=== PATIENT | female | born 1990 | race Caucasian/White ===

== ENCOUNTER → 2019-12-16 12:55 | Outpatient (CLI) | payer BC, SELFPAY ==
--- NOTE | ~2019-12-16 | US_ITS ---
EXAMINATION: US OB >= 14 weeks Fetus DATE: 12/16/2019 13:43 INDICATION: anatomic survey. TECHNIQUE: Real-time ultrasound of the pelvis was performed. COMPARISON: None. FINDINGS: There is a single living fetus in breech presentation. The placenta is posterior, 4.1 cm from the ce rvix. heart rate is 156 beats per minute (bpm). The amniotic fluid volume is subjectively jagdish l. The following biometric data were obtained: Biparietal diameter (BPD): 4.6 cm; head circumference (HC): 18.4 cm; abdominal circumference (AC): 15 .2 cm; femur length (FL): 3.5 cm. These measurements are discordant with low cephalic index. Estimated weight is 366 g +/- 55 g, which correlates with 94th percentile when 05/07/20 is used as estimated date of delivery. As single measurements, these parameters are each equal to the following estimated gestational ages w ith ranges of +/- 2 standard deviations: BPD: 19 weeks 6 days (18 weeks 1 days - 21 weeks 4 days). HC: 20 weeks 6 days (19 weeks 2 days - 22 weeks 2 days). AC: 20 weeks 3 days (18 weeks 3 days - 22 weeks 3 days). FL: 20 weeks 6 days (19 weeks 1 days - 22 weeks 5 days). estimated gestational age based solely on measurements from this exam is 20 weeks 4 days +/- 1 weeks 3 days. The cerebral ventricles, cerebellum, cisterna magna, nuchal fold, lip, and visualized portions of the spine are normal. The four-chamber heart view is normal. The heart is not well visualized on some of the other standard views. The diaphragm, stomach, kidneys, and bladder are normal. There are two umb ilical arteries to yield a 3-vessel cord. The cord insertion is normal. IMPRESSION: 1. Single living fetus in breech presentation. 2. Large for gestational age. Estimated weight is 366 g +/- 55 g, which correlates with 94th p ercentile when 05/07/20 is used as estimated date of delivery. 3. Low cephalic index. 4. Normal anatomic survey. Reviewed, dictated and finalized at location A. CTOR OF ENTERTAINMENT IMPRESSION: 1. Single living fetus in breech presentation. 2. Large for gestational age. Estimated weight is 366 g +/- 55 g, which correlates with 94th percentile when 05/07/20 is used as estimated date of deliv con. 3. Low cephalic index. 4. Normal anatomic survey.
== END ==
PROVIDERS: Visit Provider Obstetrics & Gynecology
DX: Z36.9 Encounter for antenatal screening, unspecified (principal)
CPT/HCPCS: 76805

== ENCOUNTER → 2020-01-13 13:08 | Outpatient (CLI) | payer BC, MEDICAID, SELFPAY ==
--- NOTE | ~2020-01-13 | US_ITS ---
EXAMINATION: US OB follow up DATE: 01/13/2020 14:02 INDICATION: Follow-up growth and survey TECHNIQUE: Real-time transabdominal obstetric ultrasound. FINDINGS: Ultrasound dated 12/16/2019 There is a single living fetus in variable presentation. The placenta is posterior without placenta previa. Placental margin is 4.4 cm to the cervix. RASHMI is normal measuring 11.1 cm. cardiac activity and movement is noted with a heart rate of 152 beats per minute. T he amniotic fluid volume is normal. The following biometric data were obtained: BPD: 63mm corresponds to gestational age 25 weeks 3 days. Head circumference: 232mm corresponds to gestational age 25 weeks 2 days. Abdominal circumference: 204mm corresponds to gestational age 25 weeks 0 days. Femur length: 44mm corresponds to gestational age 24 weeks 2 days. Estimated weight: 732grams +/- 110grams.] Four-chamber heart with normal left ventricular and right ventricular outflow tracts is seen. IMPRESSION: 1. Single living intrauterine in variable presentation presentation with an estimated gest ational age of 24 weeks 4 days by inititial ultrasound. Appropriate interval growth. 2. Normal placenta. 3: Normal limited survey. Reviewed, dictated and finalized at location B. UCT DEVELOPMENT ECOLOGIST IMPRESSION: 1. Single living intrauterine in variable presentation presentation with an estimated gestational age of 24 weeks 4 days by inititial ultrasound. Appropriate interval growth. 2. Normal placenta. 3: Normal limited survey.
== END ==
PROVIDERS: Visit Provider Obstetrics & Gynecology
DX: Z36.89 Encounter for other specified antenatal screening (principal); Z68.37 Body mass index [BMI] 37.0-37.9, adult; Z3A.24 24 weeks gestation of pregnancy
CPT/HCPCS: 76816

== ENCOUNTER 2022-04-23 17:52 | Emergency (ER) | payer OTHER, MEDICAID, SELFPAY ==
[2022-04-23] VITALS (11 sets, daily range): BP systolic 123–150; BP diastolic 66–83; PULSE 120–145; RESP 14–32; TEMP 36.3–37.4; O2SAT 98–100
--- NOTE | 2022-04-23 18:17 | ECG_ITS ---
Measurements Intervals [place] Rate: 133 P: 43 IA: 154 QRS: 50 QRSD: 79 T: 3 QT: 282 QTc: 421 Interpretive Statements SINUS TACHYCARDIA NONSPECIFIC T-WAVE ABNORMALITY ABNORMAL ECG NO PREVIOUS ECG AVAILABLE FOR COMPARISON Electronically Signed On 04-24-2022 9:58:45 CDT by Ash Pa M.D.
--- NOTE | 2022-04-23 18:32 | ED.ARRPALP ---
HPI - Arrhythmia/Palpitations General Chief Complaint: Arrhythmia/Palpitations Stated Complaint: palpitations Time Seen by Provider: 04/23/22 18:16 History of Present Illness HPI narrative: Pt sent here because her HR is in the 120's and 130's. Pt has no symptoms due to this. Pt has a sore throat and has been tested for covid, strep and flu which are all negative. Pt denies fever and has been eating and drinking fine. Related Data Allergies Allergy/AdvReac Type Severity Reaction Status Date / Time No Known Allergies Allergy Verified 04/23/22 18:45 Review of Systems Review of Systems: All systems reviewed & are unremarkable except as noted in HPI and below Exam Const: General: cooperative, healthy appearing, comfortable and no acute distress HENMT: Mouth: Yes Normal oral and palatal mucosa present and Yes oropharynx normal Neck: Neck: normal visual inspection Chest: Chest palpation & inspection: normal inspection of the chest Resp: Effort & Inspection: normal respiratory effort Auscultation: clear to auscultation bilaterally Cardio: Jugular venous distension: no JVD Rate: tachycardic Rhythm: regular rhythm GI: Inspection: normal to inspection GI Palp: Yes Soft to palpation Skin: General skin exam: normal color and no rashes or lesions noted Neuro: General: patient oriented x3, moves all extremities and no focal motor deficits Extrem: General: normal to inspection, full ROM and capillary refill normal Psych: Appearance: grossly normal Mental Status: mental status grossly normal Speech and movement: Normal speech and movement present Affect: normal affect Attitude: cooperative Thought process: Normal thought process present Thought content: Yes Normal thought content present Insight: Good insight present (Psych) Judgement: Good judgement present (Psych) Course Vital Signs Vital signs: Vital Signs Temperature 97.3 F L 04/23/22 17:55 Pulse Rate 141 H 04/23/22 17:55 Respiratory Rate 20 04/23/22 17:55 Blood Pressure 150/72 H 04/23/22 17:55 Pulse Oximetry 99 04/23/22 17:55 Temperature 97.3 F L 04/23/22 17:55 Pulse Rate 127 H 04/23/22 19:01 Respiratory Rate 16 04/23/22 19:01 Blood Pressure 123/81 04/23/22 19:01 Pulse Oximetry 100 04/23/22 19:01 MDM - Arrhythmia/Palpitations Lab Data Result diagrams: 04/23/22 18:42 04/23/22 18:42 Labs: Lab Results 04/23/22 04/23/22 Range/Units 18:42 18:42 WBC 12.7 H (4.5-10.0) K/mm3 RBC 3.68 L (4.2-5.4) M/mm3 Hgb 12.1 (12.0-15.0) g/dL Hct 34.9 L (37.0-47.0) % MCV 94.8 (80-100) fl MCH 32.9 (26-34) pg MCHC 34.7 (32-36) g/dl RDW 13.7 (11.5-14.5) % Plt Count 297 (150-375) k/mm3 MPV 9.6 (7.4-10.4) fl Immature Gran % (Auto) 1.2 H (0-0.5) % Neut % (Auto) 82.1 H (45.5-73.1) % Lymph % (Auto) 9.1 L (18.3-44.2) % [place] % (Auto) 7.1 (2.6-8.5) % Eos % (Auto) 0.3 (0-4.4) % Baso % (Auto) 0.2 (0.2-1.2) % Lymph # (Auto) 1.15 (0.9-3.2) K/mm3 [place] # (Auto) 0.9 H (0.1-0.6) K/mm3 Eos # (Auto) 0.0 (0-0.3) K/mm3 Baso # (Auto) 0.0 (0.0-0.1) K/mm3 Abs Immat Gran (auto) 0.15 H (0.00-0.031) K/mm3 Absolute Neuts (auto) 10.4 H (1.3-6.7) K/mm3 Absolute Nucleated RBC 0.0 (0.0-0.012) K/mm3 Nucleated RBC % 0.0 (0.0-0.2) % Sodium 136 L (137-145) mmol/L Potassium 3.9 (3.4-5.0) mmol/L Chloride 108 H (98-107) mmol/L Carbon Dioxide 18 L (22-30) mmol/L Anion Gap 10 (8-16) mmol/L BUN 7 (7-17) mg/dL Creatinine 0.50 L (0.7-1.0) mg/dL Estim Creat Clear Calc Not Reportable Estimated GFR > 60 (59 - ) Glucose 110 (65-110) mg/dL Calcium 9.1 (8.4-10.2) mg/dL Total Bilirubin 0.8 (0.2-1.3) mg/dL AST 27 (14-36) U/L ALT 25 (6-35) U/L Alkaline Phosphatase 102 (38-126) U/L Total Protein 7.0 (6.3-8.2) g/dL Albumin 4.1 (3.5-5.1) g/dL ECG Data EKG #1: Attestation: I
[2022-04-23] MEDS: SODIUM CHLORIDE 0.9% IV 1,000 ML 999 ML IV CONT (18:49)
[2022-04-23 18:50] LABS: Basophils Percent Auto 0.2 % (0.2-1.2); Eosinophils Percent Auto 0.3 % (0-4.4); Hematocrit 34.9 % (37.0-47.0); Hemoglobin 12.1 g/dL (12.0-15.0); Immature Granulocyte Absolute 0.15 K/mm3 (0.00-0.031); Immature Granulocyte Percent A 1.2 % (0-0.5); Lymphocytes Absolute Auto 1.15 K/mm3 (0.9-3.2); Lymphocytes Percent Auto 9.1 % (18.3-44.2); Mean Corpuscular HGB Conc 34.7 g/dl (32-36); Mean Corpuscular Hemoglobin 32.9 pg (26-34); Mean Corpuscular Volume 94.8 fl (80-100); Mean Platelet Volume 9.6 fl (7.4-10.4); Monocytes Absolute Auto 0.9 K/mm3 (0.1-0.6); Monocytes Percent Auto 7.1 % (2.6-8.5); Neutrophils Absolute Auto 10.4 K/mm3 (1.3-6.7); Neutrophils Percent Auto 82.1 % (45.5-73.1); Platelet Count Result 297 k/mm3 (150-375); Red Blood Count 3.68 M/mm3 (4.2-5.4); Red Cell Distribution Width 13.7 % (11.5-14.5); White Blood Count 12.7 K/mm3 (4.5-10.0)
[2022-04-23 19:05] LABS: Alanine Aminotransferase 25 U/L (6-35); Albumin Level 4.1 g/dL (3.5-5.1); Alkaline Phosphatase 102 U/L (38-126); Anion Gap 10 mmol/L (8-16); Aspartate Amino Transferase 27 U/L (14-36); Bilirubin,Total 0.8 mg/dL (0.2-1.3); Blood Urea Nitrogen 7 mg/dL (7-17); Calcium 9.1 mg/dL (8.4-10.2); Carbon Dioxide 18 mmol/L (22-30); Chloride 108 mmol/L (98-107); Estimated Glomerular Filt Rate > 60; Glucose 110 mg/dL (65-110); Potassium 3.9 mmol/L (3.4-5.0); Sodium 136 mmol/L (137-145)
--- NOTE | 2022-04-23 19:18 | PC.NURSE ---
Patient report given to BRYNN Garza. All questions answered and care of patient transferred.
== END 2022-04-23 20:47 | disposition home or self-care (01) ==
PROVIDERS: Emergency Provider Emergency Medicine; PCP Family Medicine
DX: J06.9 Acute upper respiratory infection, unspecified (principal); R00.0 Tachycardia, unspecified; R94.31 Abnormal electrocardiogram [ECG] [EKG]
CPT/HCPCS: 36415; 80053; 85025; 93005; 96360; 96361; 99284; J7030

== ENCOUNTER 2022-07-23 15:54 | Outpatient (RCR) | payer OTHER, MEDICAID, SELFPAY ==
[2022-06-26 15:28] VITALS: BP 120/75; PULSE 85
[2022-07-02 16:57] VITALS: BP 122/79; PULSE 90
[2022-07-09 16:58] VITALS: BP 113/76; PULSE 92
[2022-07-16 16:52] VITALS: BP 116/73; PULSE 84
[2022-07-23 16:31] VITALS: BP 120/78; PULSE 89
== END 2022-08-07 10:16 | disposition home or self-care (01) ==
LOC: ANHOBOP 15:54
PROVIDERS: PCP Family Medicine; Visit Provider Obstetrics & Gynecology
DX: O16.3 Unspecified maternal hypertension, third trimester (principal); Z3A.33 33 weeks gestation of pregnancy; Z3A.34 34 weeks gestation of pregnancy; Z3A.37 37 weeks gestation of pregnancy
CPT/HCPCS: 59025

== ENCOUNTER 2022-07-29 21:28 | Inpatient (IN) | payer OTHER, MEDICAID, SELFPAY ==
[2022-07-29 22:20] VITALS: BMI 40.4
--- NOTE | 2022-07-29 22:21 | LDADM ---
This patient, Melba Márquez, was admitted to Labor/Delivery/Recovery 108 on 07/29/22 at 21:28. Plans for labor, pain management and were discussed with patient. Patient/family oriented to hospital policies and general routines including ID bracelet, bed and alarms, visiting hours, pain management, procedures, bathroom and other care routines, personal items, smoking policy, room service/diet and guest tray routines, infant security routines, and visiting hours. Patient/Family are encouraged to report perceived risks to care and to ask questions if they do not understand what they are told or what they should do. See OBIX for further documentation.
[2022-07-29 23:59] LABS: Basophils Percent Auto 0.3 % (0.2-1.2); Eosinophils Absolute Auto 0.1 K/mm3 (0-0.3); Eosinophils Percent Auto 0.5 % (0-4.4); Hematocrit 32.2 % (37.0-47.0); Hemoglobin 10.7 g/dL (12.0-15.0); Immature Granulocyte Absolute 0.03 K/mm3 (0.00-0.031); Immature Granulocyte Percent A 0.3 % (0-0.5); Lymphocytes Absolute Auto 2.45 K/mm3 (0.9-3.2); Lymphocytes Percent Auto 25.8 % (18.3-44.2); Mean Corpuscular HGB Conc 33.2 g/dl (32-36); Mean Corpuscular Volume 90.2 fl (80-100); Mean Platelet Volume 10.1 fl (7.4-10.4); Monocytes Absolute Auto 0.6 K/mm3 (0.1-0.6); Monocytes Percent Auto 6.4 % (2.6-8.5); Neutrophils Absolute Auto 6.3 K/mm3 (1.3-6.7); Neutrophils Percent Auto 66.7 % (45.5-73.1); Platelet Count Result 372 k/mm3 (150-375); Red Blood Count 3.57 M/mm3 (4.2-5.4); Red Cell Distribution Width 13.7 % (11.5-14.5); White Blood Count 9.5 K/mm3 (4.5-10.0)
[2022-07-30] VITALS (88 sets, daily range): BP systolic 106–171; BP diastolic 51–136; PULSE 74–120; RESP 18; TEMP 36.2–36.7; O2SAT 99–100
[2022-07-30] MEDS: DINOPROSTONE 10 MG VAG INSERT VAGINAL (00:02)
[2022-07-30 00:15] LABS: Alanine Aminotransferase 54 U/L (6-35); Albumin Level 3.7 g/dL (3.5-5.1); Alkaline Phosphatase 221 U/L (38-126); Anion Gap 12 mmol/L (8-16); Aspartate Amino Transferase 43 U/L (14-36); Bilirubin,Total 0.7 mg/dL (0.2-1.3); Blood Urea Nitrogen 9 mg/dL (7-17); Calcium 8.9 mg/dL (8.4-10.2); Carbon Dioxide 19 mmol/L (22-30); Chloride 106 mmol/L (98-107); Estimated CRCL calculation 172 ml/min; Estimated Glomerular Filt Rate > 60; Glucose 104 mg/dL (65-110); Potassium 3.7 mmol/L (3.4-5.0); Sodium 137 mmol/L (137-145)
--- NOTE | 2022-07-30 05:13 | WPDANESEPP ---
Anes - Eval Pre Procedure Procedure: labor epidural Date/Time: 07/30/22 05:13 Pre Op Diagnosis: Induction of labor Patient Data Age: 32 Gender: F Height: 1.68 m Weight: 113.5 kg Last Vital Signs Pulse 95 07/30/22 02:00 BP 133/66 07/30/22 02:00 O2 Del Method Room Air 07/30/22 00:04 Allergies Allergy/AdvReac Type Severity Reaction Status Date / Time No Known Allergies Allergy Verified 04/23/22 18:45 Home Medications Medication Instructions Recorded Confirmed Type aspirin 81 mg chewable tablet 81 mg PO DAILY 06/26/22 07/29/22 History famotidine 10 mg tablet 10 mg PO DAILY 06/26/22 07/29/22 History labetalol 300 mg tablet 150 mg PO BID 06/26/22 07/29/22 History vit no.95-ferrous 1 tablet PO DAILY 06/26/22 07/29/22 History fumarate 28 mg-folic acid 800 mcg tablet () sertraline 25 mg tablet (Zoloft) 50 mg PO DAILY 06/26/22 07/29/22 History Laboratory Tests 07/29/22 07/29/22 07/29/22 23:38 23:38 23:38 WBC 9.5 K/mm3 K/mm3 (4.5-10.0) RBC 3.57 M/mm3 L M/mm3 (4.2-5.4) Hgb 10.7 g/dL L g/dL (12.0-15.0) Hct 32.2 % L % (37.0-47.0) MCV 90.2 fl fl (80-100) MCH 30.0 pg pg (26-34) MCHC 33.2 g/dl g/dl (32-36) RDW 13.7 % % (11.5-14.5) Plt Count 372 k/mm3 k/mm3 (150-375) MPV 10.1 fl fl (7.4-10.4) Immature Gran % (Auto) 0.3 % % (0-0.5) Neut % (Auto) 66.7 % % (45.5-73.1) Lymph % (Auto) 25.8 % % (18.3-44.2) [place] % (Auto) 6.4 % % (2.6-8.5) Eos % (Auto) 0.5 % % (0-4.4) Baso % (Auto) 0.3 % % (0.2-1.2) Lymph # (Auto) 2.45 K/mm3 K/mm3 (0.9-3.2) [place] # (Auto) 0.6 K/mm3 K/mm3 (0.1-0.6) Eos # (Auto) 0.1 K/mm3 K/mm3 (0-0.3) Baso # (Auto) 0.0 K/mm3 K/mm3 (0.0-0.1) Abs Immat Gran (auto) 0.03 K/mm3 K/mm3 (0.00-0.031) Absolute Neuts (auto) 6.3 K/mm3 K/mm3 (1.3-6.7) Absolute Nucleated RBC 0.0 K/mm3 K/mm3 (0.0-0.012) Nucleated RBC % 0.0 % % (0.0-0.2) Sodium Potassium Chloride Carbon Dioxide Anion Gap BUN Creatinine Estim Creat Clear Calc Estimated GFR Glucose Uric Acid Pending Calcium Total Bilirubin AST ALT Alkaline Phosphatase Total Protein Albumin RPR Pending Blood Type Antibody Screen 07/29/22 07/29/22 23:38 23:38 WBC RBC Hgb Hct MCV MCH MCHC RDW Plt Count MPV Immature Gran % (Auto) Neut % (Auto) Lymph % (Auto) [place] % (Auto) Eos % (Auto) Baso % (Auto) Lymph # (Auto) [place] # (Auto) Eos # (Auto) Baso # (Auto) Abs Immat Gran (auto) Absolute Neuts (auto) Absolute Nucleated RBC Nucleated RBC % Sodium 137 mmol/L mmol/L (137-145) Potassium 3.7 mmol/L mmol/L (3.4-5.0) Chloride 106 mmol/L mmol/L (98-107) Carbon Dioxide 19 mmol/L L mmol/L (22-30) Anion Gap 12 mmol/L mmol/L (8-16) BUN 9 mg/dL mg/dL (7-17) Creatinine 0.50 mg/dL L mg/dL (0.7-1.0) Estim Creat Clear Calc 172 ml/min ml/min Estimated GFR > 60 (59 - ) Glucose 104 mg/dL mg/dL (65-110) Uric Acid Calcium 8.9 mg/dL mg/dL (8.4-10.2) Total Bilirubin 0.7 mg/dL mg/dL (0.2-1.3) AST 43 U/L H U/L (14-36) ALT 54 U/L H U/L (6-35) Alkaline Phosphatase 221 U/L H U/L (38-126) Total Protein 7.0 g/dL g/dL (6.3-8.2) Albumin 3.7 g/dL g/dL (3.5
[2022-07-30 05:28] LABS: Uric Acid 5.1 mg/dL (2.5-7.5)
--- NOTE | 2022-07-30 08:40 | WPDOBADMIT ---
Obstetrics - Admit Note Admission Note: record reviewed. Additions to the history and/or subsequent changes in the physical findings follow. 32 y/o at 38 2/7 weeks with chronic hypertension, worsening blood pressure control. She takes labetalol 150 mg po bid. No headaches or epigastric pain. Good movement. GBS neg. Had Cervidil overnight, is starting to feel some contractions. AVSS ABD soft, nontender, gravid, vertex EXT nontender Cervix 2-3/80/-2. AROM with clear fluid. Vertex. NST reactive TOCO: contractions irregularly A: IUP at term with chronic HTN. P: Offered induction of labor. Reviewed risks, benefits, alternatives. Cervidil was removed and oxytocin will be administered. Anticipate .
[2022-07-30] MEDS: LACTATED RINGERS 1,000 ML 125 ML IV CONT ×2 (09:30→10:46)
[2022-07-30] MEDS: SERTRALINE HCL 50 MG TABLET PO (09:31)
[2022-07-30] MEDS: LABETALOL HCL 50 MG TABLET 150 MG PO ×2 (09:52→21:11)
[2022-07-30 10:39] LABS: Rapid Plasma Reagin Non-Reactive (NonReactive)
[2022-07-30] MEDS: OXYTOCIN 30 UNITS/NS 500 ML 30 UNITS/500 ML BAG IV CONT (10:48)
[2022-07-30 12:21] LABS: Hepatitis B Surface Antigen Negative (Negative)
[2022-07-30 12:23] LABS: Rubella IgG Antibody 1.4 IU/ML
--- NOTE | 2022-07-30 13:55 | PM.OBPRVD ---
OB - Delivery Note Procedure Delivery date: 07/30/22 Procedure: Induction of labor with Events: Chronic Hypertension Induction method: Per Pitocin Protocol Delivery augmentation: Rupture of Membranes and Pitocin Delivery monitor: External FHT and External Uterine Route of delivery: Laceration Description: None Specimen: Yes (cord blood, placenta) Quantitative Blood Loss (ml): 220 Anesthesia type: Epidural Disposition: PACU Complications: None Narrative: 32 y/o at 38 2/7 weeks gestation who presented to the hospital for induction of labor. Cervidil was placed overnight, then withdrawn the next morning. Oxytocin was administered intravenously. Amniotomy was performed with return of clear fluid. She received an epidural for pain control. Her labor progressed and her cervix dilated completely. She pushed with good effort and delivered the infant's head to the perineum. A nuchal cord was splinted and the body delivered. The cord was reduced, and the nose and mouth were bulb suctioned. After a delay, the cord was clamped and cut. The infant was handed off the field. Cord blood was collected. The placenta delivered spontaneously and was grossly normal in appearance. The usual 3 vessel cord was noted. The perineum was intact. Sponge, needle and instrument counts were correct. The patient was taken to recovery room in stable condition. The infant went to the nursery in stable condition. I was present and scrubbed for the entire delivery. [place] Baby Date of : 07/30/22 Time of : 13:44 Weeks of gestation at delivery: 38 gender: Female Weight (pounds): 7 Weight (ounces): 7 presentation: vertex position: Left Occiput Anterior Placenta delivery description: Spontaneous and Normal Configuration Cord Vessel Description: 3 Vessels, Nuchal Cord and Delayed Cord Clamping score one minute: 9 score five minutes: 9
--- NOTE | 2022-07-30 13:55 | PM.OBDSVD ---
DS: Admitting Diagnosis Discharge Date 08/01/22 Admitting Diagnosis IUP at 38 weeks Chronic HTN DS: Discharge Diagnosis Discharge Diagnosis (1) (normal spontaneous vaginal delivery): Code(s): O80 - Encounter for full-term uncomplicated delivery Status: Acute (2) Chronic hypertension affecting : Code(s): O10.919 - Unspecified pre-existing hypertension complicating , unspecified trimester Status: Acute OB - DS: Summary OB Procedures : PIH Mgmt OB Procedures Intrapartum: Spontaneous Vag Delivery OB Procedures: : None Time Spent with Patient Time attestation: Total time spent providing and/or coordinating discharge services: DS: Data Data Completed and Pending Labs on day of discharge: Labs from last 24 hours 07/30/22 07/30/22 07/29/22 11:13 11:13 23:38 WBC RBC Hgb Hct MCV MCH MCHC RDW Plt Count MPV Immature Gran % (Auto) Neut % (Auto) Lymph % (Auto) [place] % (Auto) Eos % (Auto) Baso % (Auto) Lymph # (Auto) [place] # (Auto) Eos # (Auto) Baso # (Auto) Abs Immat Gran (auto) Absolute Neuts (auto) Absolute Nucleated RBC Nucleated RBC % Sodium 137 Potassium 3.7 Chloride 106 Carbon Dioxide 19 L Anion Gap 12 BUN 9 Creatinine 0.50 L Estim Creat Clear Calc 172 Estimated GFR > 60 Glucose 104 Uric Acid Calcium 8.9 Total Bilirubin 0.7 AST 43 H ALT 54 H Alkaline Phosphatase 221 H Total Protein 7.0 Albumin 3.7 RPR Hep Bs Antigen Negative Rubella IgG Antibody 1.4 L Blood Type Antibody Screen 07/29/22 07/29/22 07/29/22 23:38 23:38 23:38 WBC 9.5 RBC 3.57 L Hgb 10.7 L Hct 32.2 L MCV 90.2 MCH 30.0 MCHC 33.2 RDW 13.7 Plt Count 372 MPV 10.1 Immature Gran % (Auto) 0.3 Neut % (Auto) 66.7 Lymph % (Auto) 25.8 [place] % (Auto) 6.4 Eos % (Auto) 0.5 Baso % (Auto) 0.3 Lymph # (Auto) 2.45 [place] # (Auto) 0.6 Eos # (Auto) 0.1 Baso # (Auto) 0.0 Abs Immat Gran (auto) 0.03 Absolute Neuts (auto) 6.3 Absolute Nucleated RBC 0.0 Nucleated RBC % 0.0 Sodium Potassium Chloride Carbon Dioxide Anion Gap BUN Creatinine Estim Creat Clear Calc Estimated GFR Glucose Uric Acid Calcium Total Bilirubin AST ALT Alkaline Phosphatase Total Protein Albumin RPR Non-reactive Hep Bs Antigen Rubella IgG Antibody Blood Type O Positive Antibody Screen Negative 07/29/22 23:38 WBC RBC Hgb Hct MCV MCH MCHC RDW Plt Count MPV Immature Gran % (Auto) Neut % (Auto) Lymph % (Auto) [place] % (Auto) Eos % (Auto) Baso % (Auto) Lymph # (Auto) [place] # (Auto) Eos # (Auto) Baso # (Auto) Abs Immat Gran (auto) Absolute Neuts (auto) Absolute Nucleated RBC Nucleated RBC % Sodium Potassium Chloride Carbon Dioxide Anion Gap BUN Creatinine Estim Creat Clear Calc Estimated GFR Glucose Uric Acid 5.1 Calcium Total Bilirubin AST ALT Alkaline Phosphatase Total Protein Albumin RPR Hep Bs Antigen Rubella IgG Antibody Blood Type Antibody Screen Discharge Plan Discharge Attending physician on discharge: Fabien Heart Discharging Clinician: Fabien Heart Patient Disposition: Home, Self-Care Activity: pelvic rest Diet: regular Discharge Instructions: Call or return if temperature above 100.4? F, increased abdominal pain, increased vaginal bleeding or any new problems. Stand Alone Forms: General Discharge Information Follow-up/Referrals: Fabien Heart MD [Physician] - 6 Weeks Discharge Medications: New ibuprofen 600 mg tablet 600 mg PO Q6H PRN (Reason: cramps) Qty: 30 0RF sertraline 100 mg tablet 100 mg PO DAILY Qty: 30 2RF Continued famotidine 10 mg Tablet 10 mg PO DAILY
[2022-07-30] MEDS: OXYTOCIN 30 UNITS/NS 500 ML 30 UNITS/500 ML BAG 125 UNITS IV CONT (14:21)
[2022-07-30] MEDS: BENZOCAINE 20% AER SPR (*SP) 56 GM CAN 1 SPRAY TOPICAL (16:06)
[2022-07-30] MEDS: WITCH HAZEL 40 PADS 1 PAD TOPICAL (16:06)
[2022-07-30] MEDS: IBUPROFEN 600 MG TABLET PO (16:06)
--- NOTE | 2022-07-30 17:00 | PC.NURSE ---
Patient transferred to post room #282 via 1700. Support person present. Oriented to unit, room, information board, rooming in, admission packet and security measures. Patient verbalizes understanding.
[2022-07-31] VITALS (7 sets, daily range): BP systolic 124–143; BP diastolic 67–81; PULSE 74–90; RESP 18; TEMP 35.9–36.9; O2SAT 97–100
[2022-07-31] MEDS: IBUPROFEN 600 MG TABLET PO ×2 (02:48→18:00)
[2022-07-31] MEDS: ACETAMINOPHEN 325 MG TABLET 650 MG PO ×2 (02:49→08:47)
[2022-07-31 05:10] LABS: Hematocrit 31.4 % (37.0-47.0); Hemoglobin 10.4 g/dL (12.0-15.0)
[2022-07-31] MEDS: LABETALOL HCL 50 MG TABLET 150 MG PO ×2 (08:42→20:36)
[2022-07-31] MEDS: SERTRALINE HCL 50 MG TABLET PO (08:42)
[2022-07-31] MEDS: FAMOTIDINE 10 MG TABLET PO (08:42)
[2022-07-31] MEDS: MULTIVIT/MIN/PREN/FOL AC/IRON TABLET 1 TAB PO (08:42)
--- NOTE | 2022-07-31 09:00 | PM.OBPNVD ---
OB - PN: Subj Subjective Date/time seen: 07/31/22 14:32 Narrative: Pain OK. OB - PN: Obj Data Labs CBC & Chem 7: 07/31/22 03:56 07/29/22 23:38 Labs: Laboratory Results - last 24 hr 07/31/22 03:56 Hgb 10.4 L Hct 31.4 L OB - PN A/P Plan Comments: A: PPD#1, doing well. CHTN. Histroy of depression. P: Continue labetalol and sertraline at the current doses. Routine care. Exam Psych: Other: AVSS ABD soft, nontender, fundus firm EXT nontender
--- NOTE | 2022-07-31 09:07 | WPDANLDPN2 ---
Anes-Prog Note L&D Date/Time: 07/31/22 09:07 Comfortable throughout: labor and delivery Neuraxial method: epidural Epidural/Spinal procedure site: clean & non-tender Neuro status: Neuro function grossly intact. Cardiovascular status: normal Respiratory status: normal Airway patency: baseline Mental status: baseline Post-Op hydration status: normal Vital Signs: Last Vital Signs Temp 97.7 F 07/31/22 04:00 Pulse 88 07/31/22 08:42 Resp 18 07/31/22 04:00 BP 128/78 07/31/22 04:00 Pulse Ox 99 07/30/22 17:00 O2 Del Method Room Air 07/31/22 00:00 Pain score (VAS): 0 I/O: Intake & Output 07/30/22 07/31/22 07/31/22 23:59 07:59 15:59 Intake Total 240 Output Total 70 Balance 170 Post-procedural complaints: none Patient feedback: Patient satisfied with anesthetic care.
--- NOTE | 2022-07-31 11:56 | PCCCNOTE ---
Care Coordination Note. Pt. referred to CC for scoring high risk on [place] suicide risk scale. I met with pt. and spouse/FOB at bedside. Pt. reports feeling in a good place right now regarding her mental health and relationships. Pt. denies any current suicidal ideation or plan. She also reports no suicidal thoughts for a few weeks. She states that she has dealt with suicidal thoughts her whole life. She has never had a history of suicide attempt. She states she has been doing well the past few years. She hasn't been on any anti-depressant medications since her last . She decided to go on zoloft toward the end of this due to thoughts and anticipation of any post depression. Pt. reports having much family support from spouse, her family, and his family that she has felt comfortable talking with whenever she feels depressed or has suicidal thoughts. Pt. has appointment setup with a counseling agency on Sep 02, but considering changing it back to [facility] due to insurance issues. I provided contact information and encouraged her to either go to Aug appointment or work on changing, so she had good counseling follow-up. Pt. will likely setup with [facility] again due to better coverage. We discussed post- depression and encouraged pt. to monitor her symptoms and speak with her doctor or family if she felt depressed and especially if she felt suicidal. Pt. appears to have good insight into herself reporting she knows it's self doubt and low self esteem that she needs to work on. supportive and reports knowing her history and helping her as needed. Provided pt. with counseling and crisis hotline information in case she would ever feel hopeless. Pt. reports being setup with [facility] and has all necessary baby care items. Pt. and deny further needs.
--- NOTE | 2022-07-31 15:58 | PC.NURSE ---
1001 - Introductions were made, then consulted with patient to assess needs related to . Mother led the conversation with her?plans to feed?her and the?experience so far. Resources provided for inpatient and outpatient services using a resource guide and mom/baby guide. Mother voiced understanding of information and will call for assistance when infant is returned to her room. [phone] - Consulted with patient to assess needs related to . Mother led an extensive conversation with a flat affect with her history of her other 2 children, her other children having jaundice, the experience with feeding baby so far, and her concerns regarding her large nipples and how that compares to her infants small mouth. Mother works well with her infant with encouragement, however, remains concerned after reassurance. Reviewed working with infant, breast, nipples and how to protect the nipples with an optimal deep latch, good positioning, and good hand washing. Encouraged understanding the benefits of skin to skin, responding to feeding cues, frequencies of feeding 8-12 times in 24 hours (approximately 2-3 hours), hand expression, milk production, intake/output feeding sheet and signs of adequate intake encouraging swallowing at the breast. When hand expression was mentioned mother shared that she has been latching her infant and after the attempts to breastfeed she will hand express colostrum, then syringe feed that to her infant. Reviewed positioning and alignment, supporting breast, off-centered (asymmetrical latch) and leading with the chin with big open wide gape. Infant latched optimally to the breast in cross cradle position. Infant sucked for a few sucks, then stops and goes to sleep. Nipple care reviewed with optimal latch and good positioning which mother is skilled with technique. Infant has a mouthful of nipple and has difficulty latching effectively to remove milk to swallow at the breast and stay actively . Infant demonstrates good output and is visually content with hands relaxed. We discussed mother's feeding choices, desires, and encouraged attempting to latch infant, then hand expressing colostrum using a syringe feeding method if she doesn't see swallowing. Resources used to facilitate learning were used from the mom and baby guide. Mother voiced understanding of the education shared, calling for assistance if the infant does not latch or if there is discomfort with . Reported to the primary RN.
[2022-07-31] MEDS: DOCUSATE SODIUM 100 MG CAPSULE PO (17:59)
[2022-08-01 08:30] VITALS: BP 139/85; PULSE 77; RESP 16; TEMP 36.8; O2SAT 97
[2022-08-01] MEDS: DOCUSATE SODIUM 100 MG CAPSULE PO (09:43)
[2022-08-01] MEDS: SERTRALINE HCL 50 MG TABLET PO (09:43)
[2022-08-01] MEDS: MULTIVIT/MIN/PREN/FOL AC/IRON TABLET 1 TAB PO (09:43)
[2022-08-01 09:44] VITALS: PULSE 77
[2022-08-01] MEDS: LABETALOL HCL 50 MG TABLET 150 MG PO (09:44)
[2022-08-01] MEDS: FAMOTIDINE 10 MG TABLET PO (09:44)
--- NOTE | 2022-08-01 12:06 | PM.OBPNVD ---
OB - PN: Subj Subjective Date/time seen: 08/01/22 12:06 Narrative: Pain OK. Would like to go home. OB - PN: Obj Data Labs CBC & Chem 7: 07/31/22 03:56 07/29/22 23:38 OB - PN A/P Assessment and Plan (1) (normal spontaneous vaginal delivery): Code(s): O80 - Encounter for full-term uncomplicated delivery Status: Acute Plan Comments: A: PPD#2, doing well. History of depression. P: Increase sertraline to 100 mg po daily. Schedule appointment with counsellor. Home to f/u with me in 6 weeks. Exam Psych: Other: AVSS ABD soft, nontender, fundus firm EXT nontender
[2022-08-01] MEDS: MEASLES,MUMPS,RUBELLA VACCINE 0.5 ML VIAL SUB-Q (13:33)
--- NOTE | 2022-08-01 14:03 | PC.NURSE ---
[id number] Consulted with patient to assess needs related to . Mother led the conversation with her experience feeding her so far. Mother works well with her . is latched to the left breast in a non-conventional position. RN suggested bringing closer to the maternal body for a deeper latch and mother was not interested. RN suggested practicing the football positioning to see if we can get a deeper latch with swallowing. latches and sucks a few times, then stops. Encouraged mother to keep actively and mother voices her experience with . The infant was taken off the breast by the mother twice after latching with the football position and the nipple was not misshaped. Mother verbalizes she is able to independently latch with appropriate positioning/alignment, however, she is still concerned about her getting enough breast into her mouth and is not seeing swallowing. She denies any nipple discomfort and is responsively . Mother has been hand expressing colostrum, putting it into a syringe, then father of baby syringe feeds the for a total of 5 mls. [id number] for discussion of weight, jaundice, and supporting with listening to mother. is currently meeting outcomes for weight (3117g with 7.36% loss since ), output (9 voids, 8 stools since ), jaundice (9.9 at 39 hours old) and feeding frequencies of 8-12 times in 24 hours. Mother declines any additional assistance/education at this time. Mother is feeding appropriately for growth of and understands stimulating to eat if needed. Infant has had appropriate feedings in the last 24 hours meets the outcomes for weight, output and jaundice at this time. Mother states she is confident to continue , hand expressing, and feeding hand expressed breastmilk until milk comes to full volume.her at home or when to call for assistance and denies any additional assistance or education at this time. Reinforced understanding of milk production, transition of milk, signs of adequate intake, prevention/relief of engorgement, responsive after visualizing feeding cues, the different methods of stimulating infant to breastfeed 2-3 hours after the start of the last feeding, community resources, medication information reviewed per [facility] and when to call a provider using the resource of the mom and baby guide/[facility] website. Mother voiced understanding of the education shared. Reported to the primary RN.
[2022-08-03 11:54] VITALS: BP 135/88; PULSE 77; RESP 16; TEMP 37.3; O2SAT 98
== END 2022-08-01 14:18 | disposition home or self-care (01) | DRG 806 ==
LOC: ANHLDR 07-30 11:23 → ANHOB2 07-30 17:14
PROVIDERS: Admitting Provider Obstetrics & Gynecology; PCP Family Medicine; Visit Provider Obstetrics & Gynecology
DX: O69.81X0 Labor and delivery complicated by cord around neck, without compression, not applicable or unspecified (principal); O10.92 Unspecified pre-existing hypertension complicating childbirth; Z37.0 Single live birth; O99.344 Other mental disorders complicating childbirth; F32.A Depression, unspecified; Z3A.38 38 weeks gestation of pregnancy; Z23 Encounter for immunization
CPT/HCPCS: 36415; 80053; 84550; 85014; 85018; 85025; 86592; 86762; 86850; 86900; 86901; 87340; 88307; 90471; 90686; 90710; A9270; G0008; J2590; J2795; J7120

== ENCOUNTER 2022-08-07 14:07 | Outpatient (RCR) | payer OTHER, MEDICAID, SELFPAY | END 2022-11-05 23:59 | disposition home or self-care (01) | LOC: ANHOBOP 14:07 | PROVIDERS: PCP Family Medicine; Visit Provider Obstetrics & Gynecology | DX: Z39.1 Encounter for care and examination of lactating mother (principal) | CPT/HCPCS: 99214; G0463 ==

== ENCOUNTER → 2023-10-24 15:11 | Outpatient (CLI) | payer OTHER, SELFPAY ==
--- NOTE | ~2023-10-24 | MR_ITS ---
EXAMINATION: MR knee RT wo con DATE: 10/24/2023 15:41 INDICATION: Right knee pain TECHNIQUE: Magnetic resonance imaging (MRI) of the right knee was performed without intravenous contr ast. Sequences included coronal PD-weighted FSE, coronal PD-weighted FS FSE, sagittal T2-weighted FS E, sagittal PD-weighted FS FSE and axial PD weighted fat saturated FSE. COMPARISON: None. FINDINGS: Medial compartment: Medial meniscus is normal. Articular cartilage is normal. Lateral compartment: Complex lateral meniscal tear with longitudinal horizontal tear plane at the anterior horn and anteri or body which extends to the cephalad articular surface at the anterior horn and a small radial tear plane involving the inner third of the lateral side of the anterior horn. There is a large para menis luna cyst arising from the horizontal tear plane which extends 3.2 cm AP, 7-8 mm medial to lateral wid th and 1.5 cm craniocaudal height. Articular cartilage is normal. Patellofemoral compartment: Horizontally oriented partial-thickness chondral fissures at the lateral patellar facet and apical ri dge spurs involve greater than 50% the cartilage thickness but without degenerative subchondral bull es. Additional partial thickness chondral ulceration and deep fissuring involving greater than 50% th e cartilage thickness but without degenerative subchondral changes at the central aspect of the troch lear groove. Ligaments and tendons: Anterior and posterior cruciate ligaments are normal. The medial collateral ligament and fibular hunter ateral ligament complex are normal. Small enthesophytes at the patellar insertion of the distal quadr iceps tendon. The patellar tendon is normal. The visualized medial and lateral hamstring tendons as w ell as the iliotibial band are normal. Fluid: Minimal knee joint effusion at the suprapatellar pouch. No loose osteochondral bodies identified. Osseous/other: Normal marrow signal. No fracture or pathologic marrow replacing process. IMPRESSION: 1. Complex tear of the anterior horn and anterior body of the lateral meniscus with associated 3.2 x 0.8 x 1.5 cm per meniscal cyst along the periphery of the affected meniscus. 2. 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 Reviewed, dictated and finalized at location A. T PAIN COORDINATOR IMPRESSION: 1. Complex tear of the anterior horn and anterior body of the lateral meniscus with associated 3.2 x 0.8 x 1.5 cm per meniscal cyst along the periphery of the affected meniscus. 2. Mild patellofemoral osteoarthritis with regions of moderate grade patellar a nd trochlear chondromalacia.
== END ==
PROVIDERS: PCP Nurse Practitioner Family; Visit Provider Nurse Practitioner Family
DX: S83.271A Complex tear of lateral meniscus, current injury, right knee, initial encounter (principal); X58.XXXA Exposure to other specified factors, initial encounter; M17.11 Unilateral primary osteoarthritis, right knee
CPT/HCPCS: 73721